=== PATIENT | female | born 1995 | race Caucasian/White ===

== ENCOUNTER 2017-01-19 15:21 | Emergency (ER) | payer MEDICAID, OTHER ==
[~2017-01-19] VITALS: Ht 162.6 cm; Wt 66.0 kg
[2017-01-19 15:31] VITALS: Ht 162.6 cm; Wt 66.0 kg
[2017-01-19 16:58] LABS: ADD SCAN DIFF NO
[2017-01-19 17:03] LABS: BASOPHILS % 0.5 % (0.0-2.0); EOSINOPHILS # 0.2 10^3/ul (0.0-0.5); EOSINOPHILS % 2.4 % (0.0-7.0); HEMATOCRIT 41.1 % (37.0-47.0); HEMOGLOBIN 13.3 g/dl (12.0-16.0); LYMPHOCYTES # 2.8 10^3/ul (0.8-2.9); LYMPHOCYTES % 31.4 % (15.0-51.0); MEAN CORPUSCULAR HEMOGLOBIN 27.2 pg (29.0-33.0); MEAN CORPUSCULAR HGB CONC 32.4 g/dl (32.0-37.0); MEAN PLATELET VOLUME 11.4 fl (7.4-10.4); MONOCYTE # 0.5 10^3/ul (0.3-0.9); MONOCYTES % 5.6 % (0.0-11.0); NEUTROPHIL # 5.3 10^3/ul (1.6-7.5); NEUTROPHILS % 59.8 % (39.0-77.0); PLATELET COUNT 241 10^3/UL (140-415); RED BLOOD COUNT 4.89 10^6/ul (4.20-5.40); RED CELL DISTRIBUTION WIDTH 12.8 % (11.5-14.5); WHITE BLOOD COUNT 8.8 10^3/ul (4.8-10.8)
[2017-01-19 17:06] LABS: ADD UMIC YES; UR BILIRUBIN (Dip) NEGATIVE (NEGATIVE); UR BLOOD (Dip) 1+ (NEGATIVE); UR CLARITY CLEAR (CLEAR); UR COLOR LT. YELLOW (YELLOW); UR GLUCOSE (Dip) NEGATIVE (NEGATIVE); UR KETONES (Dip) NEGATIVE (NEGATIVE); UR LEUKOCYTE ESTERASE (Dip) NEGATIVE (NEGATIVE); UR NITRITE (Dip) NEGATIVE (NEGATIVE); UR TOTAL PROTEIN (Dip) NEGATIVE (NEGATIVE); UR UROBILINOGEN (Dip) 0.2 E.U./dL (0.1-1.0)
--- NOTE | 2017-01-19 17:36 | RADRPT ---
PROCEDURE: OB Ultrasound. CLINICAL INDICATION: Positive test. Vaginal bleeding. TECHNIQUE: Ultrasound of the pelvis was performed with transabdominal and transvaginal sonography in the axial and sagittal planes. COMPARISON: No prior study is available for comparison. FINDINGS: There is a single intrauterine gestational sac. pole and yolk sac are present. There is heart motion. heart rate is 68 beats per minute. [place]-rump length is 0.47 cm. Mean sac diameter is 1.27 cm. Menstrual age by ultrasound dates is 6 weeks 1 day. This indicates an expected date of delivery of 09/13/2017. The right ovary appears normal measuring 4.0 x 2.4 x 2.8 cm. The left ovary appears normal measuring 2.9 x 1.4 x 1.7 cm. Color Doppler and pulsed Doppler sonography demonstrate normal flow to the ovaries. There is no other pelvic mass or free fluid. IMPRESSION: 1. Single live intrauterine gestation of 6 weeks 1 day menstrual age by ultrasound dates. 2. Expected date of delivery is 09/13/2017. RPTAT: QQ .Viral Sommers MD, Date Time Electronically viewed and signed by .Viral Sommers MD, on 01/19/2017 17:36 .R/
[2017-01-19 17:43] LABS: UR SQUAMOUS EPITHELIAL CELL OCCASIONAL; URINE RBCS 0-2 /HPF (0)
--- NOTE | 2017-01-19 18:28 | ERD ---
ER Documentation Chief Complaint Date/Time DATE: 01/19/17 TIME: 18:25 Chief Complaint 7 WEEKS VAGINAL BLEEDING WITH CRAMPING HPI Patient is a 21-year-old female who is approximately 7 weeks complaining of vaginal bleeding over the past 7 days. She states it is very light and she uses about 1 pad per day. She denies any nausea or vomiting. But she does have mild lower pelvic pain. Denies any dysuria or increased urinary frequency. She is currently taking her vitamins. She saw her OB doctor on Thursday at which point her beta hCG was 7964. ROS All systems reviewed and are negative except as per history of present illness. Medications Home Meds No Active Prescriptions or Reported Meds Allergies Allergies: Coded Allergies: No Known Drug Allergy (Verified Allergy, Unknown, 12/06/12) PMhx/Soc History of Surgery: No Anesthesia Reaction: No Hx Neurological Disorder: No Hx Respiratory Disorders: No (Asthma) Hx Cardiac Disorders: No Hx Psychiatric Problems: No Hx Miscellaneous Medical Probl: Yes () Hx Alcohol Use: No Hx Substance Use: No Hx Tobacco Use: No Smoking Status: Never smoker FmHx Family History: No diabetes Physical Exam Vitals Vital Signs Date Time Temp Pulse Resp B/P Pulse Ox O2 Delivery O2 Flow Rate FiO2 01/19/17 15:31 98.9 82 16 127/74 100 Physical Exam General: well developed, well nourished, alert, nontoxic, no distress Head: normocephalic, atraumatic Neck: Supple, nontender, no lymphadenopathy, no midline tenderness Respiratory: Clear to auscaultation bilaterally, speaks in full sentences, no use of accesory muscles or labored breathing, no rales, ronchi, or wheezing Cardiovascular: RRR, No murmurs GI: soft, non tender, non distended, negative murphys sign, negative mcburneys point tenderness, no cva tenderness bilaterally, no rebound or guarding Result Diagram: 01/19/17 5409 Results 24 hrs Laboratory Tests Test 01/19/17 16:47 White Blood Count 8.810^3/ul Red Blood Count 4.8910^6/ul Hemoglobin 13.3g/dl Hematocrit 41.1% Mean Corpuscular Volume 84.0fl Mean Corpuscular Hemoglobin 27.2pg Mean Corpuscular Hemoglobin Concent 32.4g/dl Red Cell Distribution Width 12.8% Platelet Count 10883^3/UL Mean Platelet Volume 11.4fl Neutrophils % 59.8% Lymphocytes % 31.4% Monocytes % 5.6% Eosinophils % 2.4% Basophils % 0.5% Nucleated Red Blood Cells % 0.0/100WBC Neutrophils # 5.310^3/ul Lymphocytes # 2.810^3/ul Monocytes # 0.510^3/ul Eosinophils # 0.210^3/ul Basophils # 0.010^3/ul Nucleated Red Blood Cells # 0.010^3/ul Urine Color LT. YELLOW Urine Clarity CLEAR Urine pH 6.0 Urine Specific [place] 1.015 Urine Ketones NEGATIVE Urine Nitrite NEGATIVE Urine Bilirubin NEGATIVE Urine Urobilinogen 0.2 E.U./dL Urine Leukocyte Esterase NEGATIVE Urine Microscopic RBC 0-2/HPF Urine Microscopic WBC 0-2/HPF Urine Squamous Epithelial Cells OCCASIONAL Urine Hemoglobin 1+ Urine Glucose NEGATIVE% Urine Total Protein NEGATIVE Beta HCG, Quantitative 79601.0mIU/ml Procedures/MDM 21-year-old female is here with vaginal bleeding during . Her vitals are normal she is well-appearing in no distress. He has no tenderness throughout her abdomen. Ultrasound does show a single intrauterine gestational approximately 7 weeks. And her beta hCG on Thursday was 7964 and today is 11,760. No evidence of ectopic . She was given copies of everything so she can follow with primary care. Recommended this patient follow up with her primary care doctor within 48 hours or return to the emergency room for any worsening of symptoms. However this time I do believe there is suitable for outpatient management. I answered all their questions and they agreed with the plan and were discharged home. Departure Diagnosis: Primary Impression: Threatened Condition: Stable Patient Instructions: Possible Miscarriage (Threatened ) Additional Instructions: Call your primary care doctor TOMORROW for an appointment during the next 1-2 days.See the doctor sooner or return here if your condition worsens before your appointment time. FREDY DUPONT PA-C Jan 19, 2017 18:28
== END 2017-01-19 18:48 | disposition home or self-care (01) ==
LOC: FTE 15:21
DX: O20.0 Threatened abortion (principal); J45.909 Unspecified asthma, uncomplicated; O99.511 Diseases of the respiratory system complicating pregnancy, first trimester; Z3A.01 Less than 8 weeks gestation of pregnancy
CPT/HCPCS: 36415; 76801; 76817; 81001; 84702; 85025; 86900; 86901; Z7502

== ENCOUNTER 2017-01-22 14:27 | Emergency (ER) | payer MEDICAID ==
[~2017-01-22] VITALS: Ht 152.4 cm; Wt 66.5 kg
[2017-01-22 14:32] VITALS: Ht 152.4 cm; Wt 66.5 kg
[2017-01-22 16:22] LABS: ADD SCAN DIFF NO
[2017-01-22 16:24] LABS: BASOPHILS % 0.2 % (0.0-2.0); EOSINOPHILS # 0.2 10^3/ul (0.0-0.5); EOSINOPHILS % 2.4 % (0.0-7.0); HEMATOCRIT 37.7 % (37.0-47.0); HEMOGLOBIN 12.9 g/dl (12.0-16.0); LYMPHOCYTES # 2.3 10^3/ul (0.8-2.9); LYMPHOCYTES % 28.2 % (15.0-51.0); MEAN CORPUSCULAR HEMOGLOBIN 28.4 pg (29.0-33.0); MEAN CORPUSCULAR HGB CONC 34.2 g/dl (32.0-37.0); MEAN CORPUSCULAR VOLUME 82.9 fl (82.0-101.0); MEAN PLATELET VOLUME 11.4 fl (7.4-10.4); MONOCYTE # 0.5 10^3/ul (0.3-0.9); MONOCYTES % 6.6 % (0.0-11.0); NEUTROPHIL # 5.1 10^3/ul (1.6-7.5); NEUTROPHILS % 62.4 % (39.0-77.0); PLATELET COUNT 221 10^3/UL (140-415); RED BLOOD COUNT 4.55 10^6/ul (4.20-5.40); RED CELL DISTRIBUTION WIDTH 12.6 % (11.5-14.5); WHITE BLOOD COUNT 8.2 10^3/ul (4.8-10.8)
[2017-01-22 16:30] LABS: ADD UMIC YES; UR ASCORBIC ACID 40 mg/dL (NEGATIVE); UR BILIRUBIN (Dip) NEGATIVE (NEGATIVE); UR BLOOD (Dip) 1+ mg/dL (NEGATIVE); UR CLARITY SLIGHTLY CLOUDY (CLEAR); UR COLOR YELLOW (YELLOW); UR GLUCOSE (Dip) NEGATIVE (NEGATIVE); UR KETONES (Dip) NEGATIVE (NEGATIVE); UR LEUKOCYTE ESTERASE (Dip) NEGATIVE Leu/ul (NEGATIVE); UR NITRITE (Dip) NEGATIVE (NEGATIVE); UR RBC 1 /HPF (0-5); UR SPECIFIC GRAVITY (Dip) 1.026 (1.003-1.030); UR TOTAL PROTEIN (Dip) NEGATIVE (NEGATIVE); UR UROBILINOGEN (Dip) NEGATIVE (NEGATIVE)
--- NOTE | 2017-01-22 16:52 | RADRPT ---
PROCEDURE: OBSTETRICAL ULTRASOUND WITH ENDOVAGINAL IMAGES CLINICAL INDICATION: Vaginal Bleed () TECHNIQUE: Multiple sonographic images of the pelvis were obtained utilizing a transabdominal and endovaginal technique. The images were reviewed on a PACS workstation. COMPARISON: Obstetrical ultrasound from 01/19/2017 LMP: 11/22/2016 FINDINGS: There is a single live intrauterine with heart rate of 76 beats per minute, mean sac diameter of 1.45 cm, and crown-rump length of 0.56 cm which is consistent with a gestational age of 6 weeks, 1 day . The estimated date of delivery by ultrasound is 09/16/2017 . The estimated gestational age by LMP is 8 weeks, 5 days . The estimated date of delivery by LMP is 08/29/2017 . A 9 x 5 mm hypoechoic lesion is identified adjacent to the gestational sac consistent with a subchor ionic hemorrhage. The right ovary measures 4.1 x 3.0 x 3.0 cm. The left ovary measures 3.9 x 1.9 x 2.5 cm. There is no rmal vascular flow in both ovaries. No significant ovarian lesions are seen. No significant pelvic free fluid is identified. IMPRESSION: Single live intrauterine consistent with a gestational age of 6 weeks, 1 day . The estimated date of delivery is 09/16/2017 . Dating by ultrasound is within 19 days of dating by LMP. Low heart rate of 76 beats per minute is likely due to the early nature of the . Att ention on follow-up is recommended. 9 mm subchorionic hemorrhage. RPTAT: EE Physician Mary Date Time Electronically viewed and signed by Physician Mary on 01/22/2017 16:51 /
--- NOTE | 2017-01-22 17:11 | ERD ---
ER Documentation Chief Complaint Date/Time DATE: 01/22/17 TIME: 17:08 Chief Complaint 7 WEEKS WITH SPOTTING HPI Patient is a 21-year-old female who is was approximately 7 weeks who presents to the ED with mild vaginal spotting and repeat ultrasound. Patient was sent here from the [facility] for ultrasound to check heart rate as the heart rate has been low. She denies fever or chills. Denies abdominal pain or back pain. Denies headache or dizziness. Denies chest pain or cough or shortness of breath. States that she has mild pelvic pain and very minimal spotting which has gotten better in the last week. No other complaints. ROS All systems reviewed and are negative except as per history of present illness. Medications Home Meds No Active Prescriptions or Reported Meds Allergies Allergies: Coded Allergies: No Known Drug Allergy (Verified Allergy, Unknown, 12/06/12) PMhx/Soc History of Surgery: No Anesthesia Reaction: No Hx Neurological Disorder: No Hx Respiratory Disorders: No (Asthma) Hx Cardiac Disorders: No Hx Psychiatric Problems: No Hx Miscellaneous Medical Probl: Yes () Hx Alcohol Use: No Hx Substance Use: No Hx Tobacco Use: No FmHx Family History: No coronary disease, No diabetes, No other Physical Exam Vitals Vital Signs Date Time Temp Pulse Resp B/P Pulse Ox O2 Delivery O2 Flow Rate FiO2 01/22/17 14:32 98.4 80 20 108/63 99 Physical Exam GENERAL: Well-developed, well-nourished female. Appears in no acute distress. HEAD: Normocephalic, atraumatic. EYES: Pupils are equally reactive bilaterally. EOMs grossly intact. No conjunctival erythema. ENT: Moist mucous membranes. No uvula deviation. No kissing tonsils. No exudates. NECK: Supple. No lymphadenopathy or thyromegaly. No meningismus. negative kernig. negative brudinski. LUNG: Clear to auscultation bilaterally. No rhonchi, wheezing, rales or coarse breath sounds. HEART: Regular rate and rhythm. No murmurs, rubs or gallops. ABDOMEN: No scars, ecchymosis or rashes noted. Soft, nontender, and nondistended. Positive bowel sounds in all four quadrants. No rebound tenderness , no guarding. (-) McBurneys point tenderness. No CVA tenderness. BACK: No midline tenderness. Extremities: Equal pulses bilaterally. No peripheral clubbing, cyanosis or edema. No unilateral leg swelling. NEUROLOGIC: Alert and oriented. Moving all four extremities. 5/5 strength in all extremities. Normal speech. Steady gait. SKIN: Normal color. Warm and dry. No rashes or lesions. Capillary refill < 2 seconds Result Diagram: 01/22/17 1609 Results 24 hrs Laboratory Tests Test 01/22/17 16:05 01/22/17 16:09 Beta HCG, Quantitative 50802.0mIU/ml White Blood Count 8.210^3/ul Red Blood Count 4.5510^6/ul Hemoglobin 12.9g/dl Hematocrit 37.7% Mean Corpuscular Volume 82.9fl Mean Corpuscular Hemoglobin 28.4pg Mean Corpuscular Hemoglobin Concent 34.2g/dl Red Cell Distribution Width 12.6% Platelet Count 71203^3/UL Mean Platelet Volume 11.4fl Neutrophils % 62.4% Lymphocytes % 28.2% Monocytes % 6.6% Eosinophils % 2.4% Basophils % 0.2% Nucleated Red Blood Cells % 0.0/100WBC Neutrophils # 5.110^3/ul Lymphocytes # 2.310^3/ul Monocytes # 0.510^3/ul Eosinophils # 0.210^3/ul Basophils # 0.010^3/ul Nucleated Red Blood Cells # 0.010^3/ul Urine Color YELLOW Urine Clarity SLIGHTLY CLOUDY Urine pH 5.0 Urine Specific [place] 1.026 Urine Ketones NEGATIVEmg/dL Urine Nitrite NEGATIVEmg/dL Urine Bilirubin NEGATIVEmg/dL Urine Urobilinogen NEGATIVEmg/dL Urine Leukocyte Esterase NEGATIVELeu/ul Urine Microscopic RBC 1/HPF Urine Microscopic WBC 3/HPF Urine Hemoglobin 1+mg/dL Urine Glucose NEGATIVEmg/dL Urine Total Protein NEGATIVEmg/dl Procedures/MDM ER COURSE: I kept the patient and/or family informed of laboratory and diagnostic imaging results throughout the emergency room course. IMAGING STUDIES [place] [address] Radiology Main Line: [phone] DIAGNOSTIC IMAGING REPORT Patient: FREDA COMBS : 1995 Age: 21 Sex: F MR #: [id number] DOS: 01/22/17 1550 Ordering MD: LEE RICHARDSON PA-C [facility] Room[facility]Bed: PROCEDURE: OBSTETRICAL ULTRASOUND WITH ENDOVAGINAL IMAGES CLINICAL INDICATION: Vaginal Bleed () TECHNIQUE: Multiple sonographic images of the pelvis were obtained utilizing a transabdominal and endovaginal technique. The images were reviewed on a PACS workstation. COMPARISON: Obstetrical ultrasound from 01/19/2017 LMP: 11/22/2016 FINDINGS: There is a single live intrauterine with heart rate of 76 beats per minute, mean sac diameter of 1.45 cm, and crown-rump length of 0.56 cm which is consistent with a gestational age of 6 weeks, 1 day . The estimated date of delivery by ultrasound is 09/16/2017 . The estimated gestational age by LMP is 8 weeks, 5 days . The estimated date of delivery by LMP is 08/29/2017 . A 9 x 5 mm hypoechoic lesion is identified adjacent to the gestational sac consistent with a subchorionic hemorrhage. The right ovary measures 4.1 x 3.0 x 3.0 cm. The left ovary measures 3.9 x 1.9 x 2.5 cm. There is normal vascular flow in both ovaries. No significant ovarian lesions are seen. No significant pelvic free fluid is identified. IMPRESSION: Single live intrauterine consistent with a gestational age of 6 weeks , 1 day . The estimated date of delivery is 09/16/2017 . Dating by ultrasound is within 19 days of dating by LMP. Low heart rate of 76 beats per minute is likely due to the early nature of the . Attention on follow-up is recommended. 9 mm subchorionic hemorrhage. RPTAT: EE Physician Mary Date Time Electronically viewed and signed by Physician Mary on 01/22/2017 16:51 RA/ CC: LEE RICHARDSON PA-C CBC within normal limits. Urine analysis does not show signs of infection. Beta hCG 68433. Rh was not redone as patient had a recent one of B+ MEDICAL DECISION MAKING: This is a 21-year-old female who is who presents with repeat ultrasound. Vital signs were reviewed. Patient is afebrile. Patient is not hypoxic. Patient is nontoxic or ill-appearing. Ultrasound is read by radiologist shows a single live intrauterine with a gestational age of 6 weeks 1 day. Low heart rate of 76 bpm likely due to early nature of attention on follow-up is recommended 9 mm subchorionic hemorrhage. I consulted with my supervising physician Dr. keller. Patient is stable for outpatient therapy and to follow-up with OB. I explained results to patient that she is likely having a threatened . [place] 09408 on 01/19/17 to 20272.0 today on 01/22/17. Low suspicion for ectopic , , molar , endometriosis, PID, cervicitis, septic , molar , HELLP syndrome, preeclampsia, eclampsia, placenta previa, placenta abruptia. DISCHARGE: At this time, patient is stable for discharge and outpatient management with no new complaints during the ER course. Patient was sent home with copy of all imaging report and laboratory studies and a note for work and to follow-up with OB in 1-2 days.. Patient will be discharged home with instructions to recheck for new or worsening symptoms such as fever, nausea, weakness, LOC and to follow up with primary care in the next 1-2 days. Patient was advised to return to the ER for any new or worsening symptoms. Plan was discussed and patient and/ or family understands and agrees. Home instructions were given. Departure Diagnosis: Primary Impression: Threatened Condition: Stable Patient Instructions: Possible Miscarriage (Threatened ) Additional Instructions: Call your primary care doctor TOMORROW for an appointment during the next 1-2 days.See the doctor sooner or return here if your condition worsens before your appointment time. LEE RICHARDSON PA-C Jan 22, 2017 17:11
[2017-01-22 17:38] VITALS: BP 118/66; PULSE 74; RESP 19; TEMP 98.3
== END 2017-01-22 17:39 | disposition home or self-care (01) ==
LOC: FTE 14:27
DX: O20.0 Threatened abortion (principal); J45.909 Unspecified asthma, uncomplicated; Z3A.01 Less than 8 weeks gestation of pregnancy
CPT/HCPCS: 36415; 76801; 76817; 81001; 84702; 85025; Z7502